=== PATIENT | female | born 1945 | race Caucasian/White ===

== ENCOUNTER → 2025-04-26 | Outpatient (CLI) | payer MEDICARE, MEDICAID, SELFPAY ==
--- NOTE | 2025-04-26 15:27 | EKG_ITS ---
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
== END | disposition home or self-care (01) ==
LOC: SEKG 15:16
PROVIDERS: PCP Internal Medicine; Referring Provider Ophthalmology; Visit Provider Ophthalmology
DX: Z01.818 Encounter for other preprocedural examination (principal); H25.811 Combined forms of age-related cataract, right eye
CPT/HCPCS: 93005